=== PATIENT | male | born 1965 | race Caucasian/White ===

== ENCOUNTER 2016-08-01 17:08 | Emergency (ER) | payer OTHER | END 2016-08-01 18:26 | disposition home or self-care (01) | LOC: FER 17:08 | DX: S61.212A Laceration without foreign body of right middle finger without damage to nail, initial encounter (principal); I10 Essential (primary) hypertension; Z23 Encounter for immunization; Z79.899 Other long term (current) drug therapy; W45.0XXA Nail entering through skin, initial encounter; Y92.009 Unspecified place in unspecified non-institutional (private) residence as the place of occurrence of the external cause | CPT/HCPCS: 90471; 90715 ==